=== PATIENT | male | born 1995 | race Caucasian/White ===

== ENCOUNTER 2020-07-23 02:08 | Emergency (ER) | payer OTHER ==
[~2020-07-23] VITALS: Ht 182.9 cm; Wt 74.8 kg
[2020-07-23 02:09] VITALS: BP 129/92
[2020-07-23] MEDS ORDERED: LORAZEPAM 1 MG TABLET ONE (02:18)
[2020-07-23] MEDS: LORAZEPAM 1 MG TABLET PO ONE (02:24)
--- NOTE | 2020-07-23 04:10 | NUR ---
PT STATES "I WANT TO GO HOME, I FEEL BETTER". MADE AWARE
--- NOTE | 2020-07-23 04:38 | NUR ---
Patient discharged to home in stable condition. Written and verbal after care instructions given. Patient verbalizes understanding of instruction. pt. ambulatory with a steady gait
== END 2020-07-23 04:39 | disposition home or self-care (01) ==
LOC: ER 02:10
DX: F15.10 Other stimulant abuse, uncomplicated (principal); F41.9 Anxiety disorder, unspecified